=== PATIENT | female | born 1970 | race Caucasian/White ===

== ENCOUNTER 2021-09-10 07:59 | Day surgery (SDC) | payer OTHER ==
[2021-09-07 13:45] VITALS: BMI 20.5
[2021-09-10] MEDS ORDERED: PROPOFOL 20 ML ONE ×3 (08:30)
[2021-09-10] MEDS ORDERED: LIDOCAINE HCL/PF 2% SDV 5ML VIAL ONE (08:30)
[2021-09-10 09:42] VITALS: PULSE 76; TEMP 98
[2021-09-10 10:13] VITALS: BP 141/87
== END 2021-09-10 10:20 | disposition home or self-care (01) ==
LOC: FASU-ENDO 07:59
PROVIDERS: ATTEND Internal Medicine Gastroenterology
PROC: 0DB98ZX Excision of Duodenum, Via Natural or Artificial Opening Endoscopic, Diagnostic (ICD-10-PCS; 2021-09-10)
PROC: 0DB68ZX Excision of Stomach, Via Natural or Artificial Opening Endoscopic, Diagnostic (ICD-10-PCS; 2021-09-10)
PROC: 0DBN8ZX Excision of Sigmoid Colon, Via Natural or Artificial Opening Endoscopic, Diagnostic (ICD-10-PCS; principal; 2021-09-10 08:49)
DX: D50.9 Iron deficiency anemia, unspecified (principal); D12.5 Benign neoplasm of sigmoid colon; K29.50 Unspecified chronic gastritis without bleeding
CPT/HCPCS: 81025; 88305-TC; 88342-TC

== ENCOUNTER 2024-09-20 07:25 | Day surgery (SDC) | payer OTHER ==
[2024-09-18 09:23] VITALS: BMI 23.0
[2024-09-20] MEDS ORDERED: LIDOCAINE HCL/PF 2% SDV 5ML VIAL ONE (08:06)
[2024-09-20] MEDS ORDERED: PROPOFOL 40 ML ONE (08:07)
[2024-09-20] MEDS ORDERED: PROPOFOL 20 ML ONE (08:07)
[2024-09-20 09:41] VITALS: RESP 20; TEMP 97.4
[2024-09-20 09:44] VITALS: BP 102/64; PULSE 88
== END 2024-09-20 10:20 | disposition home or self-care (01) ==
LOC: FASU-ENDO 07:25
PROVIDERS: ATTEND Internal Medicine Gastroenterology
PROC: 0DJD8ZZ Inspection of Lower Intestinal Tract, Via Natural or Artificial Opening Endoscopic (ICD-10-PCS; principal; 2024-09-20 08:17)
DX: Z12.11 Encounter for screening for malignant neoplasm of colon (principal); K57.30 Diverticulosis of large intestine without perforation or abscess without bleeding; Z86.0109 Personal history of other colon polyps